=== PATIENT | female | born 1950 | race Caucasian/White ===

== ENCOUNTER → 2018-08-26 08:40 | Outpatient (CLI) | payer MEDICARE, OTHER ==
[2011-07-28 12:57] VITALS: BMI 33.5
== END | disposition home or self-care (01) ==
LOC: D.CT 08:40
PROVIDERS: ATTEND Orthopaedic Surgery
DX: M13.88 Other specified arthritis, other site (principal)

== ENCOUNTER → 2018-09-09 09:57 | Outpatient (CLI) | payer MEDICARE, OTHER ==
[~2018-09-09 09:57] MED LIST: ABILIFY2 MG PO; AMBIEN10 MG PO; CATAPRES0.1 MG PO; EFFEXOR XR150 MG PO; FOLIC ACID1 MG PO; LEVO-T125 MCG PO; NEURONTIN 300300 MG PO; PEPCID40 MG PO; PLAVIX75 MG PO; SPIRONOLACTONE/HCTZ PO; TENORMIN25 MG PO; TRAZODONE HCL150 MG PO; ULTRAM50 MG PO; ZANAFLEX4 MG PO
== END | disposition home or self-care (01) ==
LOC: D.MRI 09:57
DX: M43.16 Spondylolisthesis, lumbar region (principal)

== ENCOUNTER → 2018-11-21 10:57 | Outpatient (CLI) | payer MEDICARE ==
[2011-07-28 12:57] VITALS: BMI 33.5
== END | disposition home or self-care (01) ==
LOC: D.HCCARDIO 10:57
PROVIDERS: ATTEND Internal Medicine Cardiovascular Disease
DX: I20.9 Angina pectoris, unspecified (principal)

== ENCOUNTER → 2018-11-24 08:13 | Outpatient (CLI) | payer MEDICARE ==
[2011-07-28 12:57] VITALS: BMI 33.5
[2018-11-30 12:20] VITALS: BMI 31.8
== END | disposition home or self-care (01) ==
LOC: D.HCCARDIO 08:13
PROVIDERS: ATTEND Internal Medicine Cardiovascular Disease
DX: R55 Syncope and collapse (principal)

== ENCOUNTER 2018-11-30 11:26 | Outpatient (CLI) | payer MEDICARE ==
[~2018-11-30] VITALS: Ht 162.6 cm; Wt 84.1 kg
--- NOTE | ~2018-11-30 | HEMODYNAMI ---
PATIENT:TAMMY LUDWIG MEDICAL RECORD: [id number] : 46 LOCATION:[facility] ADMISSION DATE: 11/30/18 Generatedon:11/30/201815:03 Patient name: TAMMY LUDWIG Patient #: [id number] SSN: : 1950 Date of study: 11/30/2018 Page: Of Hemodynamic Procedure Report Patient Data Patient Demographics Procedure consent was obtained First Name: TAMMY Gender: Female Last Name: OZIEL : 1950 [facility] Initial: ZUHAIR Age: 68 year(s) Patient #: [id number] Race: Unknown Additional ID: [id number] Contact details [address]: [address] [place] [address] State: [place] City: [place] Zip code: [address] Past Medical History Allergies Allergen Reaction Date Comments Reported Other allergy 11/30/2018 Codeine, Wellbutrin, statins. Admission Admission Data Admission Date: 11/30/2018 Admission Time: 11:26 Admit Source: Other Weight (lbs.): 185.19 Weight (kg.): 84 Lab Results Lab Result Date: 11/30/2018 Lab Result Time: 0:21 Biochemistry Name Units Result Min Max BUN mg/dl 24 --(----)-* 7 18 Creatinine mg/dl 1.5 --(----)-* 0.6 1.3 CBC Name Units Result Min Max Hematocrit % 38.3 *-(----)-- 42 54 Hemoglobin g/dl 13.6 --(*---)-- 13.5 17.5 Procedure Procedure Types Cath Procedure Diagnostic Procedure [facility] w/Coronaries Sedation Charges Moderate Sedation up to 15 minutes PCI Procedure Coronary Stent Coronary Stent Initial Procedure Description Procedure Date Procedure Date: 11/30/2018 Procedure Start Time: 14:41 Procedure End Time: 15:02 Procedure Staff Name Function Osman Crews MD Performing Physician Max Honeycutt RT Monitor Judy Cobian RT Scrnick Mason RN Nurse Donaldo Paige RN Bluing Oven Tender Procedure Data Cath Procedure Fluoroscopy Diagnostic fluoroscopy Total fluoroscopy Time: 3.5 time: 3.5 min min Diagnostic fluoroscopy Total fluoroscopy dose: 882 dose: 882 mGy mGy Contrast Material Contrast Material Type Amount (ml) Isovue 300 90 Entry Location Entry Primary Successful Side Size Upsize Upsize Entry Closure Succes sful Closure Location (Fr) 1 (Fr) 2 (Fr) Remarks Device Remarks Radial Right 6 Fr artery Short Estimated blood loss: 10 ml Diagnostic catheters Device Type Used For End Catheter Placement DIAGNOSTIC [place] 110cm 5 Procedure Fr catheter ([id number]) Procedure Complications No complications Procedure Medications Medication Administration Route Dosage 0.9% NaCl I.V. 100 ml/hr Oxygen etCO2 Nasal cannula 2 l/min Lidocaine 2% added to field 20 Heparin Flush Bag added to field 2 bags (1000units/500ml NS) Radial Cocktail added to field 1 syringe (Verapamil 2mg/Nitro 400mcg/Heparin 1500units) Versed I.V. 2 mg Fentanyl I.V. 50 mcg Fentanyl I.V. 50 mcg Heparin Bolus I.V. 8500 units Plavix P.O. 600 mg Hemodynamics Rest HGB: 13.6 (g/dl) Heart Rate: 62 (bpm) Pressure Samples Time Site Value (mmHg) Purpose Heart Use Rate(bpm) 14:47 LV 91/2,0 Snapshot 44 14:47 LV 113/0,0 Snapshot 54 Gradients Valve Time Site Site Mean SEP/DFP Peak To Heart Use 1 2 (mmHg) (sec/min) Peak Rate (mmHg) (bpm) Aortic 14:48 LV AO 50 Snapshots Pre Cath Intra NCS Post Cath Vital Signs Time Heart Resp SPO2 etCO2 NIBP (mmHg) Rhythm Pain Sedation Rate (ipm) (%) (mmHg) Status Level (bpm) 14:23:04 61 19 100 36 151/80(125) NSR 0 (11) 10(A) , No pain 14:27:19 62 19 100 32.3 158/92(135) NSR 0 (11) 10(A) , No pain 14:31:39 60 14 97 30 126/72(99) NSR 0 (11) 10(A) , No pain 14:36:31 63 14 96 29.2 134/79(95) NSR 0 (11) 10(A) , No pain 14:40:42 62 11 96 36.8 130/79(107) NSR 0 (11) 10(A) , No pain 14:44:49 62 12 97 36.8 136/79(114) NSR 0 (11) 9(A) , No pain 14:48:57 68 13 98 35.3 118/71(96) NSR 0 (11) 9(A) , No pain 14:53:03 77 17 97 39.8 131/78(99) NSR 0 (11) 9(A) , No pain 14:57:11 73 16 96 39.8 129/76(103) NSR 0 (11) 10(A) , No pain 15:01:20 70 25 96 36.8 118/71(95) NSR 0 (11) 10(A) , No pain Medications Time Medication Route Dose Verified Delivered Reason Not es Effectiveness by by 14:22:09 0.9% NaCl I.V. 100 Osman Della used for ml/hr Mars Mason collection technician 14:22:16 Oxygen etCO2 2 l/min Osman Della used for Nasal Mars Mason procedure cannula RN 14:22:22 Lidocaine 2% added 20ml Osman Osman for local to vial Mars Crews MD anesthetic field 14:22:27 Heparin Flush added 2 bags Osman Osman used for Bag to Mars Crews MD procedure (1000units/500ml field NS) 14:22:32 Radial Cocktail added 1 Osman Osman used for (Verapamil to syringe Mars Crews MD procedure 2mg/Nitro field 400mcg/Heparin 1500units) 14:36:59 Versed I.V. 2 mg Osman Della for sedation Mars Mason RN 14:37:03 Fentanyl I.V. 50 mcg Osman Della for sedation Mars Mason RN 14:41:53 Fentanyl I.V. 50 mcg Osman Della for sedation Mars Mason RN 14:53:27 Heparin Bolus I.V. 8500 Osman Della for karla ified units Mars Mason anticoagulation with Dr. MILADIS Crews 14:57:01 Plavix P.O. 600 mg Osman Della for Mars Mason antiplatelet RN therapy Procedure Log Time Note 14:00:23 Donaldo Paige RN sent for patient. Start room use. 14:10:45 Informed consent obtained and on chart 14:10:51 Admit Source: Other 14:: Time tracking: Regular hours (M-F 7:00 - 5:00) 14:11:31 Plan of Care:Hemodynamics will remain stable., Cardiac rhythm will remain stable., Comfort level will be maintained., Respiratory function will remain adequate., Patient/ family verbilizes understanding of procedure., Procedure tolerated without complication., Recovers from procedure without complications.. 14:11:51 H&P Date Dictated: 11/21/2018 Within 30 days and on chart., H&P Addendum completed by physician on day of procedure. (MUST COMPLETE FOR ALL OUTPATIENTS). 14:13:30 Patient received from Pre/Post Procedure Room to CCL 2 Alert and oriented. Tansferred to table in Supine position. 14:13:31 Warm blankets applied, and carlos hugger turned on for patient comfort. 14:13:31 Correct patient and procedure confirmed by team. 14:13:33 ECG and BP/O2 sat monitors applied to patient. 14:21:53 Vital chart was started 14:22:09 0.9% NaCl 100 ml/hr I.V. was administered by Della Mason RN; used for procedure; 14:22:16 Oxygen 2 l/min etCO2 Nasal cannula was administered by Della Mason RN; used for procedure; 14:22:22 Lidocaine 2% 20ml vial added to field was administered by Osman Crews MD; for local anesthetic; 14:22:27 Heparin Flush Bag (1000units/500ml NS) 2 bags added to field was administered by Osman Crews MD; used for procedure; 14:22:32 Radial Cocktail (Verapamil 2mg/Nitro 400mcg/Heparin 1500units) 1 syringe added to field was administered by Osman Crews MD; used for procedure; 14:: Baseline sample Acquired. 14:: Rhythm: sinus rhythm 14:: Full Disclosure recording started 14::28 Pre-procedure instructions explained to patient. 14::28 Pre-op teaching completed and patient verbalized understanding. 14::31 Family in waiting room. 14:27:32 Patient NPO since Breakfast. 14:28:05 Patient allergic to Other allergyCodeine, Wellbutrin, statins. 14:28:07 Is the patient allergic to Iodine/contrast media? No. 14:28:10 Is patient on blood thinner?No 14:28:11 Patient diabetic? Yes. 14:28:18 If diabetic: On Metformin? No 14:28:26 Previous problem with sedation/anesthesia? No ? 14:28:27 Snore? Yes 14:28:27 Sleep apnea? No 14:28:28 Deviated septum? No 14:28:33 Opens mouth fully? Yes 14:28:34 Sticks out tongue? Yes 14:28:36 Airway obstruction? No ? 14:28:41 Dentures? Yes upper in tight 14:28:45 Pre procedure: right dorsailis pedis pulse 2+ Normal; easily identifiable; not easily obliterated 14:28:47 Modified Josesito's test Ulnar < 7 seconds 14:28:52 Patient pain scale 0/10 ?. 14:28:59 IV patent on arrival in left forearm with 0.9% NaCl at O. 14:29:37 Lab Result : BUN 24 mg/dl 14:29:37 Lab Result : Creatinine 1.5 mg/dl 14:29:37 Lab Result : Hemoglobin 13.6 g/dl 14:29:37 Lab Result : Hematocrit 38.3 % 14:29:42 Patient Weight : 185.19 lbs 14:29:46 Lab results completed and on chart. 14:29:48 Right Radial & Right Groin area was prepped with chlora-prep and draped in sterile fashion 14:29:49 Alarms reviewed by R. N. 14:29:49 Sharps counted by scrub and verified by R.N. 14:29:51 Use device set Radial Dx or PCI 14:29:52 ACIST Syringe (12422) opened to sterile field. 14:29:52 Medline Cath Pack ([id number]) opened to sterile field. 14:29:53 Bag Decanter () opened to sterile field. 14:29:53 ACIST Hand Control (14438) opened to sterile field. 14:29:53 ACIST Manifold (16307) opened to sterile field. 14:29:54 Tegaderm 4 x 4 (1626W) opened to sterile field. 14:29:54 MBrace Wrist Support ([id number]) opened to sterile field. 14:29:55 NEEDLE Cook 21G 4cm Radial (P99167) opened to sterile field. 14:29:56 SHEATH 6FR RAIN (8154137) opened to sterile field. 14:29:59 EMERALD Guide Wire (551-380) opened to sterile field. 14:35:43 Physician arrived 14::44 --------ALL STOP TIME OUT------ 14::44 Final Timeout: patient, procedure, and site verified with staff and physician. All members of the team are in agreement. 14:35:46 Right Radial & Right Groin site verified by team. 14:35:50 Fire Safety Assessment: A--An alcohol-based skin anteseptic being used preoperatively., C--Open oxygen or nitrous oxide is being used., D--An ESU, laser, or fiber-optic light is being used. 14:35:52 Physical assessment completed. ASA score P 2 - A patient with mild systemic disease as per Osman Crews MD. 14:36:59 Versed 2 mg I.V. was administered by Della Mason RN; for sedation; 14:37:03 Fentanyl 50 mcg I.V. was administered by Della Mason RN; for sedation; 14:39:59 3b) 30-44 Moderately reduced kidney function. 14:40:17 Maximum allowable contrast does (3.7 X eGFR X 0.75)99 ml. 14:40:20 Sedation plan: IV Moderate Sedation Medication:Versed, Fentanyl 14:41:48 Zero performed for pressure channel P1 14:41:53 Fentanyl 50 mcg I.V. was administered by Della Mason RN; for sedation; 14:41:54 Procedure started. 14:41:58 Local anesthetic to right radial artery with Lidocaine 2% by Osman Crews MD.INITIAL ACCESS ONLY 14:42:06 A 6 Fr Short sheath was inserted into the Right Radial artery 14:44:19 A DIAGNOSTIC [place] 110cm 5 Fr catheter (139114) was advanced over the wire and used for Procedure. 14:46:49 LV hemodynamics recorded. 14:47:45 LV gram done using NOGUEIRA 14:47:47 Injector settings: Ml/sec: 5, Volume: 15, 14:47:57 EF : 60 % 14:48:40 LCA angiography performed. 14:49:27 RCA angiography performed. 14:49:54 BMW 300cm [place] 2 J wire ([id number]) opened to sterile field. 14:49:55 INFLATOR Merit BasixCompak (NA6095) opened to sterile field. 14:50:06 GUIDE 6FR XBLAD 3.5 catheter ([id number]) opened to sterile field. 14:50:07 TUBING High Pressure Extension Tubing (Mars) (NH0015N) opened to sterile field. 14:50:10 Catheter exchanged over wire. 14:50:23 Proceeding to intervention. 14:50:32 6 Fr xblad 3.5 guide catheter was inserted over the wire 14:53:27 Heparin Bolus 8500 units I.V. was administered by Della Mason RN; for anticoagulation; verified with Dr. Crews 14:54:31 bmw 300 wire advanced. 14:54:41 Wire advanced across lesion. 14:57:01 Plavix 600 mg P.O. was administered by Della Mason RN; for antiplatelet therapy; 14:57:09 Place stent Inflation Number: 1 A ABNER OTW 3.5 x 18 stent ([id number]) was prepped and advanced across the Mid CX . The stent was deployed at 12 WARREN for 0:10 (min:sec) . 14:57:43 Stent catheter was removed intact over wire. 14:57:48 Wire removed. 14:58:10 Guide catheter removed. 14:58:32 TR BAND Standard ([id number]) opened to sterile field. 14:58:39 Procedure ended.(Physican Out) 14:59:37 Fluoroscopy time 03.50 minutes. 14:59:42 Fluoroscopy dose: 882 mGy 14:59:42 Flurop Dose total: 882 14:59:48 Contrast amount:Isovue 300 90ml. 14:59:49 Sharps counted by scrub and verified by R.N. 14:59:55 TR band inflated with 10cc of air. 14:59:57 Post-procedure physical assessment completed. ASA score P 2 - A patient with mild systemic disease as per Osman Crews MD. 15:00:00 Post procedure rhythm: sinus rhythm 15:00:03 Estimated blood loss: 10 ml 15:00:05 Post procedure instruction explained to patient.Patient verbalizes understanding. 15:00:05 Patient needs reinforcement of post procedure teaching. 15:00:46 Procedure type changed to Cath procedure, Diagnostic procedure, LHC, LHC w/Coronaries, Sedation Charges, Moderate Sedation up to 15 minutes, PCI procedure, Coronary Stent, Coronary Stent Initial 15:02:06 Procedure and supply charges have been captured, reviewed, submitted and are correct. 15:02:08 Procedure Complication : No complications 15:02:10 Vital chart was stopped 15:02:10 See physician's report for complete and final results. 15:02:12 Report given to Pre/Post Procedure Room. 15:02:13 Patient transfered to Pre/Post Procedure Room with Stretcher. 15:02:16 Procedure ended. 15:02:16 Full Disclosure recording stopped 15:02:20 End room use (Document Last) Intervention Summary Intervention Notes Time ActionType Lesion and Equipment Action# Pressure Duration Attributes Used 14:57:09 Place stent Mid CX ABNER OTW 3.5 1 12 00:10 x 18 stent ([id number]) Device Usage Item Name Manufacture Quantity Catalog Hospital Part Current Mini [facility] Lot# / Number Charge Number Stock Stock Serial# Code ACIST Syringe Acist 1 33203 313327 751944 [id number] 20 (20079) Medical Systems Inc Medline Cath Medline 1 [id number] 434538 54133 267420 5 Pack ([id number]) Bag Decanter Microtek 1 2002S 058954 78801 019810 5 (2002S) Medical Inc. ACIST Hand Acist 1 12338 175241 947836 375895 5 Control Medical (11097) Systems Inc ACIST Acist 1 66665 378570 088014 688577 5 Manifold Medical (00022) Systems Inc Tegaderm 4 x 3M 1 1626W 051905 887830 740547 5 4 (1626W) MBrace Wrist Advanced 1 140-0250-00 949900 36143 901946 5 Support Vascular (246503557) Dynamics NEEDLE Cook 3D Sports [employer] Medical 1 E84881 343866 217233 190014 5 21G 4cm Radial (L31002) SHEATH 6FR Cardinal 1 0377845 356102 6729997 911496 5 Amorfix Life Sciences (6614074) EMERALD Guide Cardinal 1 387-357 666259 833053 372319 5 [facility] Proteus Digital Health (885-713) DIAGNOSTIC Terumo 1 40-6401 484174 997024 857119 5 [place] 110cm 5 Fr catheter (863628) BMW 300cm Tran 1 [id number] 975268 664806 065359 5 [place] 2 J Vascular wire (7291734G) INFLATOR Merit 1 SD6948 003806 112781 830199 15 Merit Medical BasixCompak (EL5150) GUIDE 6FR Cardinal 1 [id number] 273358 581203 044909 10 XBLAD 3.5 Health catheter (02914529) TUBING High Merit 1 [id number] 881482 91140 531852 10 Pressure Medical Extension Tubing (Mars) (PM2567M) ABNER OTW 3.5 Medtronic 1 [id number] 873031 5035640 365380 5 [id number] x 18 stent ([id number]) TR BAND Terumo 1 [id number] 845972 666474 217888 40 Standard ([id number]) Signature Audit [place] Stage Time Signature Unsigned Intra-Procedure 11/30/2018 Max Honeycutt 3:03:09 PM RT(R) Signatures Performing Physician : Signature : Osman Crews MD Date : Time : Monitor : Max Honeycutt RT Signature : Date : Time : Nurse : Della Mason RN Signature : Date : Time : [facility] [address] [place] [address]
[2018-11-30] MEDS ORDERED: TENORMIN25 MG PO (12:05)
[2018-11-30] MEDS ORDERED: FOLIC ACID1 MG PO (12:05)
[2018-11-30] MEDS ORDERED: PEPCID40 MG PO (12:05)
[2018-11-30] MEDS ORDERED: AMBIEN10 MG PO (12:05)
[2018-11-30] MEDS ORDERED: SPIRONOLACTONE/HCTZ PO (12:07)
[2018-11-30] MEDS ORDERED: EFFEXOR XR150 MG PO (12:08)
[2018-11-30] MEDS ORDERED: LEVO-T125 MCG PO (12:08)
[2018-11-30] MEDS ORDERED: TRAZODONE HCL150 MG PO (12:08)
[2018-11-30] MEDS ORDERED: ZANAFLEX4 MG PO (12:09)
[2018-11-30] MEDS ORDERED: CATAPRES0.1 MG PO (12:09)
[2018-11-30] MEDS ORDERED: NEURONTIN 300300 MG PO (12:09)
[2018-11-30] MEDS ORDERED: ABILIFY2 MG PO (12:09)
[2018-11-30] MEDS ORDERED: ULTRAM50 MG PO (12:10)
[2018-11-30 12:20] VITALS: BP 156/81; Ht 162.6 cm; Wt 84.1 kg
[2018-11-30 12:24] LABS: BASOPHILS 0.2 % (0-2); EOSINOPHILS 0.5 % (0-7); HEMATOCRIT 38.3 % (36.0-48.0); HEMOGLOBIN 13.6 g/dL (12-16); IMMATURE GRANULOCYTES 0.4 % (0-5); LYMPHOCYTES 31.7 % (15-50); MCH 32.6 pg (26.0-34.0); MCHC 35.5 g/dL (31.0-37.0); MCV 91.8 fL (80.0-100.0); MONOCYTES 8.7 % (2-11); NEUTROPHILS 58.5 % (40-80); PLATELET COUNT 152 10x3/uL (130-400); RBC 4.17 10x6/uL (4.00-5.40); RDW 11.7 % (11.5-14.5); WBC 9.2 10x3/uL (4.8-10.8)
[2018-11-30 13:44] LABS: ANION GAP 13.2 mmol/L (8-16); CALCIUM 8.5 mg/dL (8.5-10.1); CREATININE - SERUM 1.5 mg/dL (0.6-1.3); POTASSIUM - SERUM 3.2 mmol/L (3.5-5.1)
--- NOTE | 2018-11-30 15:35 | NUR ---
ROOM AIR, NO RESP DISTRESS. RIGHT WRIST TR BAND CDI, NO BLEEDING OR HEMATOMA NOTED. NO C/O PAIN. HAD SOME NAUSEA UPON ARRIVAL, BUT HAS SUBSIDED WITH ZOFRAN. VSS. CALL LIGHT WITHIN REACH.
[2018-11-30] MEDS ORDERED: PLAVIX75 MG PO (15:46)
--- NOTE | 2018-11-30 16:05 | NUR ---
SIPPING ON DRINK AND EATING SANDWICH WITH NO C/O NAUSEA. RIGHT WRIST TR BAND CDI, NO BLEEDING OR HEMATOMA NOTED. DENEIS ANY NEEDS. VSS. FAMILY AT BEDSIDE, CALL LIGHT WITHIN REACH.
--- NOTE | 2018-11-30 16:20 | NUR ---
RESTING QUIETLY WITH EYES CLOSED. RIGHT WRIST TR BAND CDI, NO BLEEDING OR HEMATOMA NOTED. DENIES ANY NEEDS. VSS. WILL CONTINUE TO MONITOR.
--- NOTE | 2018-11-30 16:50 | NUR ---
CONTINUES TO REST COMFORTABLY WITH NO C/O. RIGHT WRIST TR BAND CDI, NO BLEEDING OR HEMATOMA NOTED. DENIES ANY NEEDS. VSS. WILL CONTINUE TO MONITOR.
--- NOTE | 2018-11-30 18:00 | NUR ---
3CC OF AIR REMOVED FROM TR BAND WITH NO BLEEDING NOTED. VSS. WILL CONTINUE TO MONITOR.
--- NOTE | 2018-11-30 18:15 | NUR ---
4CC OF AIR REMOVED FROM TR BAND WITH NO BLEEDING.
--- NOTE | 2018-11-30 18:30 | NUR ---
LEFT PIV D/C'D WITH CATHETER INTACT, BAND AID TO SITE. UP TO BEDSIDE TO GET DRESSED. AMBULATED TO RESTROOM.
--- NOTE | 2018-11-30 18:43 | NUR ---
REMAINING AIR REMOVED FROM TR BAND WITH NO BLEEDING NOTED. DRESSING PLACED TO SITE. DISCHARGE INSTRUCTIONS ALONG WITH PLAVIX PRESCRIPTION GIVEN TO PT AND FAMILY. ALL VERBALIZED UNDERSTANDING.
--- NOTE | 2018-11-30 18:53 | NUR ---
TAKEN OUT VIA WHEELCHAIR BY CATH PIPELINE INSPECTOR. LEFT FACILITY WITH FAMILY AND ALL PERSONAL BELONGINGS.
== END 2018-11-30 18:53 | disposition home or self-care (01) ==
LOC: D.CATH 11:26
PROVIDERS: ATTEND Internal Medicine Cardiovascular Disease
DX: I25.119 Atherosclerotic heart disease of native coronary artery with unspecified angina pectoris (principal); Z01.812 Encounter for preprocedural laboratory examination
CPT/HCPCS: 93458; C9600

== ENCOUNTER → 2019-11-28 10:43 | Outpatient (CLI) | payer MEDICARE ==
[2018-11-30 12:20] VITALS: BMI 31.8
== END | disposition home or self-care (01) ==
LOC: D.HCCECHO 10:43
PROVIDERS: ATTEND Internal Medicine Cardiovascular Disease
DX: I25.10 Atherosclerotic heart disease of native coronary artery without angina pectoris (principal)